=== PATIENT | female | born 1940 | race Caucasian/White ===

== ENCOUNTER 2017-05-25 18:29 | Emergency (ER) | payer OTHER, BC ==
[2017-05-25] MEDS ORDERED: Sodium Chloride 0.9% 1,000 ML PRIMARY IV ONE (18:45)
[2017-05-25] MEDS ORDERED: NORMAL SALINE 10 ML SYRINGE FLUSH IVP PRN (18:45)
--- NOTE | 2017-05-25 18:48 | EKG ---
[address] [address] Measurements Intervals [place] Rate: 52 P: 64 [place]: 180 QRS: 59 QRSD: 102 T: 70 QT: 450 QTc: 430 Interpretive Statements SINUS BRADYCARDIA No previous ECG available for comparison Electronically Signed On 05-26-17 08:08:07 MDT by Bandar Richards MD [email or web address]
[2017-05-25 18:59] LABS: BASOPHILS # (AUTO) 0.02 10*3/UL; BASOPHILS % (AUTO) 0.2 % (0-1); EOSINOPHILS # (AUTO) 0.07 10*3/UL; EOSINOPHILS % (AUTO) 0.9 % (0-8); HEMATOCRIT 43.7 % (37.0-47.0); HEMOGLOBIN 15.3 g/dL (12.0-16.0); LYMPHOCYTES # (AUTO) 1.38 10*3/uL; MEAN CORPUSCULAR HEMOGLOBIN 31.4 PG (27-31); MEAN CORPUSCULAR VOLUME 89.5 FL (81-99); MEAN PLATELET VOLUME 10.4 FL (7.4-12.2); MONOCYTES # (AUTO) 0.65 10*3/UL (0.3-0.8); NEUTROPHILS # (AUTO) 5.95 10*3/UL; NEUTROPHILS % (AUTO) 73.3 % (50-80); PLATELET MORPHOLOGY COMMENT NORMAL MORPHOLOGY (NORM); RBC MORPHOLOGY COMMENT NORMAL MORPHOLOGY (NORM); RED BLOOD COUNT 4.88 10^6/uL (4.20-5.40); WBC MORPHOLOGY COMMENT NORMAL MORPHOLOGY (NORM)
[2017-05-25] MEDS ORDERED: ONDANSETRON 4 MG/2 ML VIAL ONE (19:06)
[2017-05-25 19:07] LABS: BUN/CREATININE RATIO 12.5 (6-20); CALCIUM 9.4 mg/dL (8.7-10.7); SERUM ALBUMIN 4.2 g/dL (3.5-4.8)
[2017-05-25 19:15] LABS: BILIRUBIN,URINE NEGATIVE (NEG); CLARITY,URINE CLEAR (CLEAR); COLOR,URINE YELLOW; GLUCOSE, URINE (UA) NEGATIVE (NEG); NITRATE,URINE NEGATIVE (NEG); OCCULT BLOOD,URINE NEGATIVE (NEG); PROTEIN,URINE NEGATIVE (NEG)
[2017-05-25 19:22] LABS: RBC,URINE 0 /hpf; RENAL EPITHELIAL CELLS,URINE RARE; SQUAMOUS EPITHELIAL CELL,UR RARE; URINE SAMPLE TYPE CATH SPECIMEN
[2017-05-25 19:23] LABS: URINE CASTS RARE
[2017-05-25] MEDS ORDERED: KETOROLAC 15 MG/1 ML VIAL IVP ONE (20:10)
[2017-05-25] MEDS ORDERED: KETOROLAC 15 MG/1 ML VIAL ONE (20:15)
--- NOTE | 2017-05-25 20:18 | DI ---
HISTORY: Status post fall. Pain with movement. COMPARISON: None available. TECHNIQUE: Unenhanced images of the lumbar spine were obtained and submitted for interpretation. FINDINGS: There is approximately 20% loss of height at L1, suggestive of a compression fracture. T here is no retropulsion. There is diffuse osteopenia. There is narrowing of several disc spaces especially at L4-L5. There is facet arthropathy. The spinous processes, pedicles, lamina, and transverse processes are intact. There is lumbar spondylosis. The sacrum is osteopenic. There are prominent densities noted anterior to the sacrum, and this could be due to prior surgery. These causes beam hardening artifacts that limit the sensitivity of the exam. Scattered sclerotic foci of indeterminate etiology. IMPRESSION: 1. Approximately 20% loss of height at L1, suggestive of a compression fracture. Recommend MRI and c linical correlation. 2. Diffuse osteopenia of the osseous structures, including the sacrum, with evidence of lumbar spondy losis. Facet arthropathy. 3. Narrowing of several disc spaces especially at L4-L5. 4. Scattered sclerotic foci of indeterminate etiology.
--- NOTE | 2017-05-25 20:24 | DI ---
HISTORY: Altered mental status after fall. COMPARISON: None available. TECHNIQUE: Unenhanced images of the brain were obtained and submitted for interpretation. FINDINGS: There is no acute infarct, intracranial hemorrhage, or mass effect. There is no hydroceph alus, or significant midline shift. The basal cisterns are not effaced. There is senescent change. The visualized paranasal sinuses and mastoids are relatively well-aerated . IMPRESSION: 1. No intracranial hemorrhage. MRI is recommended if clinical symptoms persist. Partially imaged d ensities within the right maxillary bone could be due to prior surgery.
[2017-05-25] MEDS ORDERED: HYDROcodone-APAP 5 MG -325 MG TABLET PO ONE ×3 (21:00→21:25)
[2017-05-25] MEDS ORDERED: HYDROcodone-APAP 5 MG -325 MG TABLET PO SCH (21:30)
--- NOTE | 2017-05-25 22:21 | PDOC ---
Fall HPI - General Chief Complaint: Fall Stated Complaint: FALL WITH LOWER BACK PAIN Date Seen by Provider: 05/25/17 Time Seen by Provider: 18:45 Source: POSITIVE: Patient Exam Limitations: POSITIVE: No limitations - History of Present Illness Initial Comments: This patient is a very nice 76-year-old woman who unfortunately sustained a mechanical fall simply slipping today. She fell to the ground had instant pain in her low back and also struck her head. It's unclear whether she lost consciousness or not. While in route with EMS to the hospital she was given some fentanyl in by the time she is here in the emergency department she is quite confused and out of it. She has intact speech but is unable to understand or answer questions fully. She is able to comply with an exam however. She is unable to tell me exactly what happened that caused her to fall. She is denying pain anywhere except for her low back currently. Have you received a tetanus shot in the past 10 years?: Unknown - Patient Home Medications Home Medications: Home Medications Trazodone HCl 2 tab PO QHS #180 tab 11/12/16 Esomeprazole Magnesium [Nexium] 1 cap ORAL QD #90 capsule 02/16/17 Hydrocodone/Acetaminophen [Tupman 5-325 Tablet] 1 tab PO Q4H PRN #14 tab - Patient Allergies Allergies/Adverse Reactions: Allergies Allergy/AdvReac Type Severity Reaction Status Date / Time Sulfa (Sulfonamide Allergy Intermediate facial Verified 05/25/17 18:48 Antibiotics) swelling/itching Past Medical History - heen HEENT History: Denies History Cardiovascular History: Denies History Respiratory History: Denies History ROS - Limitations ROS Limitations: No Limitations Constitution: REPORTS: Denies Symptoms Cardiovascular: REPORTS: Denies Cardiac Symptoms Respiratory: REPORTS: Denies Resp Symptoms Neurological: REPORTS: Denies Neuro Symptoms Gastrointestinal: REPORTS: Denies GI Symptoms Fall Physical Exam - General Appearance General Appearance: POSITIVE: Alert, Other (She has some confusion and inability to answer all questions appropriately) - HEENT HEENT: POSITIVE: Other (She is a bit of a hematoma on her left cheek with some mild abrasion there. Remainder of neck and head exam are benign.) - Neck Neck: POSITIVE: Non Tender, Painless ROM, Trachea Midline - Respiratory / CVS Respiratory / CVS: POSITIVE: Chest Non Tender, No Ecchymosis, Breath Sounds Normal - Abdomen Abdomen: Soft: (All Quadrants), Normal Bowel Sounds: (All Quadrants), Denies Tenderness: (All Quadrants) - Neuro / Psych Neuro / Psych: POSITIVE: Oriented X3, lab technologist Normal As Tested, Motor Normal, Sensation Normal, Mood Appropriate, Other (Some difficulty answering all questions due to some mild confusion) - Back Back: POSITIVE: Other (Tenderness with palpation in the midline of her spine in the lumbar region.) - Extremities Joint Exam: POSITIVE: Joints Normal, Normal ROM Fall Progress - Results Reviewed by me Xrays/CTs/US Reviewed by me: Yes Radiology Findings: Lumbar compression fracture Lab Results Reviewed: Yes Lab Results:: Laboratory Results 05/25/17 05/25/17 Range/Units 18:55 19:10 WBC 8.12 (4.8-10.8) 10^3/uL RBC 4.88 (4.20-5.40) 10^6/uL Hgb 15.3 (12.0-16.0) g/dL Hct 43.7 (37.0-47.0) % MCV 89.5 (81-99) FL MCH 31.4 H (27-31) PG MCHC 35.0 (33-37) g/dL RDW Std Deviation 44.3 (39-50) fL RDW Coeff of [place] 13.7 (11.5-14.5) % Plt Count 204 (140-350) 10*3/uL MPV 10.4 (7.4-12.2) FL Immature Gran % (Auto) 0.6 (0-5) % Neut % (Auto) 73.3 (50-80) % Lymph % (Auto) 17.0 (10-50) % [place] % (Auto) 8.0 (5-15) % Eos % (Auto) 0.9 (0-8) % Baso % (Auto) 0.2 (0-1) % Immature Gran # (Auto) 0.05 10*3/UL Neut # (Auto) 5.95 10*3/UL Lymph # (Auto) 1.38 10*3/uL [place] # (Auto) 0.65 (0.3-0.8) 10*3/UL Eos # (Auto) 0.07 10*3/UL Baso # (Auto) 0.02 10*3/UL WBC Morphology Comment Normal morphology (NORM) Plt Morphology Comment Normal morphology (NORM) RBC Morph Comment Normal morphology (NORM) Sodium 142 (135-145) meq/L Potassium 3.6 L (3.8-5.2) meq/L Chloride 108 (98-112) meq/L Carbon Dioxide 22 L (23-33) meq/L Anion Gap 12 (5-20) BUN 10 (7-22) mg/dL Creatinine 0.8 (0.50-1.20) mg/dL Estimated GFR (>60 ml/min/1.73m(2)) BUN/Creatinine Ratio 12.50 (6-20) Glucose 93 (78-110) mg/dL Calculated Osmolality 292.0 (267-292) mOsm/kg Calcium 9.4 (8.7-10.7) mg/dL Total Bilirubin 0.7 (0.3-1.2) mg/dL AST 22 (8-39) IU/L ALT 25 (9-52) IU/L Alkaline Phosphatase 75 (38-126) IU/L Troponin I < 0.012 (< 0.040) ng/mL Total Protein 7.2 (6.1-8.0) g/dL Albumin 4.2 (3.5-4.8) g/dL Globulin 3.0 (2.50-4.10) g/dL Albumin/Globulin Ratio 1.40 (1.3-2.0) mg/g Ur Collection Type Cath specimen Urine Color Yellow Urine Clarity Clear (CLEAR) Urine pH 6.0 (5.0-8.5) Ur Specific [place] 1.010 (1.005-1.030) Urine Protein Negative (NEG) mg/dl Urine Glucose (UA) Negative (NEG) mg/dL Urine Ketones Negative (NEG) Urine Occult Blood Negative (NEG) Urine Nitrate Negative (NEG) Urine Bilirubin Negative (NEG) Urine Urobilinogen 2.0 (0.2) EU/dL Ur Leukocyte Esterase Trace (NEG) Urine RBC 0 (NONE) /hpf Urine WBC 1-3 (NONE) Ur Squamous Epith Cells Rare (NONE) Ur Renal Epithelial Cell Rare (NONE) Urine Crystals None Urine Bacteria None (NONE) Urine Casts Rare (NONE) Urine Mucus None (NONE) Urine Trichomonas None (NONE) Urine Yeast None (NONE) Ur Culture Indicated? Culture not set - Patient's Progress MDM / ED Course: This very nice lady unfortunate sustained a lumbar compression fracture. She was given a dose of Toradol and also a one-time dose of Tupman. She tolerated this very well and after CT revealed a compression fracture she was ambulated slowly seemed to tolerate that fairly well and discharge plans were put into place for her to be monitored closely at home to avoid further falling to consider getting a walker a elevated bed and whatever would take to help her get through the next few days with her new compression fracture. I've also encourage her to follow-up with her primary care provider to discuss whether or not she needs MRI of her back or close monitoring or physical therapy or orthopedic consultation or any further workup or treatment modalities. Fortunately she's given some pain medication parameters to return including cauda equina symptoms and encouraged to watch her salt closely Patient Care Time - Estimated PCT Patient Care Time (In Minutes): 35 Vital Signs - VS Reviewed Vital Signs Reviewed: Yes Discharge Clinical Impression: Compression fracture Concussion without loss of consciousness, initial encounter Qualifiers: Encounter type: initial encounter Qualifier Code: (S06.0X0A) Concussion without loss of consciousness, initial encounter Discharge Disposition: Discharged to Home Condition: Stable Prescriptions / Orders: Hydrocodone/Acetaminophen [[place] 5-325 Tablet] 1 tab PO Q4H PRN #14 tab PRN Reason: Pain Patient Instructions Given at Discharge: Vertebral Compression Fracture (ED), Concussion (ED), Contusion in Adults (ED) Additional Instructions: Use pain medication as needed but sparingly so you do not have increased risk of fall See her primary care provider within the next 1-2 days for reevaluation of your back pain and your strength and to decide if you need physical therapy or orthopedic consultation or any other intervention Return to the emergency department with any incontinence lower extremity weakness or numbness or any other symptoms of concern Follow Up With: NONE,NONE [Primary Care Provider] -
[2017-05-25 23:17] VITALS: RESP 18; TEMP 96.1
== END 2017-05-25 21:54 | disposition home or self-care (01) ==
LOC: ER 18:29
DX: S32.018A Other fracture of first lumbar vertebra, initial encounter for closed fracture (principal); S00.83XA Contusion of other part of head, initial encounter; S00.81XA Abrasion of other part of head, initial encounter; R41.0 Disorientation, unspecified; S06.0X0A Concussion without loss of consciousness, initial encounter; W01.0XXA Fall on same level from slipping, tripping and stumbling without subsequent striking against object, initial encounter
CPT/HCPCS: 70450; 72131; 80053; 81001; 81003; 84484; 85025; 93005; 93010; 96361; 96374; 99284; J1885; J2405; J7030

== ENCOUNTER → 2017-06-02 | Outpatient (CLI) | payer OTHER, BC | LOC: MMPC 11:11 | PROVIDERS: ATTEND Internal Medicine | DX: S32.050A Wedge compression fracture of fifth lumbar vertebra, initial encounter for closed fracture (principal) | CPT/HCPCS: 99214; G0463 ==